=== PATIENT | female | born 1935 | race Caucasian/White ===

== ENCOUNTER 2021-12-08 11:52 | Outpatient (CLI) | payer OTHER, MEDICAID, SELFPAY ==
[~2021-12-08] VITALS: Ht 162.6 cm; Wt 72.6 kg
[2021-12-12] MEDS ORDERED: CEFAZOLIN SOD 2 GM in D5W 50 ML IV ONE (09:45)
[2021-12-12] MEDS ORDERED: CEFAZOLIN SOD 1 GM in D5W 50 ML IV ONE (09:45)
== END 2021-12-08 13:00 | disposition home or self-care (01) ==
LOC: EDBD → SLB 11:52 → UNDOADMIN 12-12 07:57 → SMU 12-12 07:57 → EDSTATUS 12-12 10:10 → SLB 12-12 11:50
PROVIDERS: ATTEND Colon & Rectal Surgery
DX: Z01.812 Encounter for preprocedural laboratory examination (principal); K43.6 Other and unspecified ventral hernia with obstruction, without gangrene; K40.20 Bilateral inguinal hernia, without obstruction or gangrene, not specified as recurrent; Z20.822 Contact with and (suspected) exposure to COVID-19
CPT/HCPCS: 87081; C9803; U0003; 36415; J0690; J7060

== ENCOUNTER 2022-01-17 10:19 | Emergency (ER) | payer OTHER, MEDICAID ==
[~2022-01-17] VITALS: Ht 162.6 cm; Wt 71.7 kg
[2022-01-17 10:20] VITALS: BP_SYST 149
[2022-01-17] MEDS ORDERED: BACITRACIN 1 GM OINT TP ONE (13:20)
[2022-01-17] MEDS ORDERED: ACETAMINOPHEN 500 MG TABLET PO ONE (14:45)
[2022-01-17 20:04] VITALS: BP_SYST 147
== END 2022-01-17 20:04 | disposition home or self-care (01) ==
LOC: SED 10:19
DX: S70.01XA Contusion of right hip, initial encounter (principal); I10 Essential (primary) hypertension; W18.39XA Other fall on same level, initial encounter; Y93.89 Activity, other specified; Y92.89 Other specified places as the place of occurrence of the external cause; Y99.8 Other external cause status
CPT/HCPCS: 72192-TC; 76376; 99285